=== PATIENT | male | born 1960 | race Caucasian/White ===

== ENCOUNTER 2017-04-11 16:08 | Emergency (ER) | payer OTHER ==
[~2017-04-11] VITALS: Ht 177.8 cm; Wt 99.8 kg
--- NOTE | 2017-04-11 16:17 | NUR ---
PT BIB [facility] FROM HOME CO ALCOHOL, HEROINE AND XANAX OVERDOSE. PT IN ER, HYPOXIC, NON- VERBA. NON-REBREATHER PLACED IMPROVED THE SAT TO 99%.
--- NOTE | 2017-04-11 16:36 | NUR ---
PT RESPONDING TO PAINFUL STUMULI AT THE TIME OF BLOOD DRAW, SAYING, "GOD HELP ME".
[2017-04-11 16:39] LABS: ABG HCO3 21.8 mmol/L; ABG PCO2 38.5 mmHg (35.0-45.0); ABG PO2 66.2 mmHg (75.0-100.0); ABG SITE RIGHT RADIAL; ABG TOTAL HEMOGLOBIN 18.5 G/dL (13.5-18.0); COHb 2.4 % (0.5-1.5); MetHb 0.4 % (0.0-1.5); VENT MODE ROOM AIR
[2017-04-11 16:49] LABS: BASOPHILS # (AUTO) 0.1 K/uL (0.0-8.0); BASOPHILS % (AUTO) 0.6 % (0.0-2.0); EOSINOPHILS # (AUTO) 0.1 K/uL (0.0-0.7); EOSINOPHILS % (AUTO) 0.8 % (0.0-7.0); HEMOGLOBIN 17.5 g/dL (12.5-16.3); LYMPHOCYTES # (AUTO) 2.5 K/uL (20.0-40.0); LYMPHOCYTES % (AUTO) 25.1 % (20.5-51.5); MEAN CORPUSCULAR HEMOGLOBIN 32.1 uug (23.8-33.4); MEAN CORPUSCULAR HGB CONC 34 g/dL (32.5-36.3); MEAN CORPUSCULAR VOLUME 95.1 fL (73.0-96.2); MONOCYTES # (AUTO) 0.7 K/uL (2.0-10.0); MONOCYTES % (AUTO) 6.6 % (0.0-11.0); NEUTROPHILS # (AUTO) 6.8 K/uL (1.8-8.9); NEUTROPHILS % (AUTO) 66.9 % (38.5-71.5); PLATELET COUNT (AUTO) 253 K/uL (152-348); RED BLOOD CELL COUNT(AUTO) 5.47 MIL/uL (4.06-5.63); WHITE BLOOD COUNT (AUTO) 10.1 K/uL (3.6-10.2)
[2017-04-11 16:50] LABS: CARBON DIOXIDE 22 mmol/L (21-32); CHLORIDE 101 mmol/L (98-107); CREATININE 1.1 mg/dL (0.6-1.3); GLUCOSE 100 mg/dL (74-106); POTASSIUM 3.6 mmol/L (3.5-5.1); UREA NITROGEN, BLOOD 14 mg/dL (7-18)
[2017-04-11 16:56] LABS: ALANINE AMINOTRANSFERASE 79 U/L (16-63); ALKALINE PHOSPHATASE 93 U/L (50-136); ASPARTATE AMINOTRANSFERASE 65 U/L (15-37); BILIRUBIN,DIRECT 0.1 mg/dL (0.0-0.2); BILIRUBIN,TOTAL 0.4 mg/dL (0.2-1.0); TOTAL PROTEIN, SERUM 8.4 g/dL (6.4-8.2)
[2017-04-11 17:08] LABS: ETHANOL 290 MG/DL (0-0)
--- NOTE | 2017-04-11 17:10 | NUR ---
PT ADMITTED TO CCU BY DR. RAJAN, TRANSFER PENDING ON ROOM AVAILABILITY. 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
[2017-04-11 17:11] LABS: ACETAMINOPHEN < 2.0 ug/mL (10-30)
--- NOTE | 2017-04-11 17:35 | NUR ---
PT MUMBLING, BREATHING NORMALY AT THIS TIME, ON NC. 96%
--- NOTE | 2017-04-11 18:01 | NUR ---
PT AWAKE, VERY AGITATED, YELLING AT STAFF.
--- NOTE | 2017-04-11 18:58 | NUR ---
PT NEEDS TO GO TO BATHROOM, URINAL OFFERED. PT THREW THE URINAL AT MY SELF AND CURSED.
--- NOTE | 2017-04-11 19:01 | NUR ---
HERMILO TODD CALLED, PT THROWING THE MONITOR LINES OUTSIDE, REACHING THE SUCTION CATH, TOOK IT OUT AND THREW IT AT STAFF FACE. CURSING AND THREARTENING THE STAFF.
[2017-04-11] MEDS ORDERED: HALOPERIDOL LACTATE 5 MG/1 ML VIAL IM ONE (19:15)
[2017-04-11] MEDS ORDERED: diphenhydrAMINE 50 MG/1 ML VIAL IM ONE (19:15)
[2017-04-11] MEDS ORDERED: HALOPERIDOL LACTATE 5 MG/1 ML VIAL ONE (19:23)
[2017-04-11] MEDS ORDERED: diphenhydrAMINE 50 MG/1 ML VIAL ONE (19:23)
--- NOTE | 2017-04-11 19:45 | NUR ---
Received report from KAREN Li. Assumed care of pt at this time. Pt remains in 4 point velcro restraints due to aggressive/combative behavior. Pt becoming less restless and less verbally abusive,.
--- NOTE | 2017-04-11 21:17 | NUR ---
Initially unaware pt has [facility] insurance and admission is pending. [facility] called now for MD to MD report. Dr. Marlow speaking with Dr. Mejia (eugene )
[2017-04-11 21:56] LABS: *BILIRUBIN,URIN NEGATIVE (NEGATIVE); *BLOOD, URINE NEGATIVE (NEGATIVE); *CLARITY,URINE CLEAR (CLEAR); *COLOR,URINE YELLOW (YELLOW); *KETONES,URINE TRACE (NEGATIVE); *PROTEIN,URINE NEGATIVE (NEGATIVE); *UROBILINOGEN,URINE 0.2 E.U./dl (NORMAL); LEUKOCYTE ESTERASE ,URINE NEGATIVE (NEGATIVE); NITRITE, URINE NEGATIVE (NEGATIVE); PH,URINE 5.5 (5.0-8.0); UGLUCOSE NEGATIVE (NEGATIVE)
[2017-04-11 22:06] LABS: WBC,URINE 0-3 /HPF (0-3)
[2017-04-11 22:07] LABS: MUCUS,URINE MANY /LPF (0-FEW)
[2017-04-11 22:10] LABS: *AMPHETAMINE, URINE NEGATIVE (NEGATIVE); *BARBITURATE, URINE NEGATIVE (NEGATIVE); *CANNABINOID, URINE POSITIVE (NEGATIVE); *COCCAINE, URINE NEGATIVE (NEGATIVE); *OPIATE, URINE POSITIVE (NEGATIVE); *PHENCYCLIDINE SCREEN,URINE NEGATIVE (NEGATIVE)
--- NOTE | 2017-04-11 22:13 | NUR ---
Pt resting in position of comfort for self with eyes closed, no longer restless in bed, pt calm and cooperative at this time.
--- NOTE | 2017-04-12 00:12 | NUR ---
David with crisis team at bedside for evaluation and unable to assess due to sedation.
--- NOTE | 2017-04-12 01:00 | NUR ---
Pt to be transferred to [facility] ER. Dr. Herzog accepted. Ambulance ETA [id number]. Number to call report to is [phone]. Pt resting in position of comfort for self, resp even and unlabored, tachypnic. No obvious signs of distress at this time
[2017-04-12] MEDS ORDERED: IV NORMAL SALINE 1000 ML BAG IV ONE (02:15)
--- NOTE | 2017-04-12 02:15 | NUR ---
Pt sitting up, requested water. Pt calm and cooperative, EMS at bedside.
== END 2017-04-12 03:05 | disposition short-term general hospital (02) ==
LOC: ER 16:11
DX: T42.4X1A Poisoning by benzodiazepines, accidental (unintentional), initial encounter (principal); F17.200 Nicotine dependence, unspecified, uncomplicated
CPT/HCPCS: 36415; 36600; 70030-TC; 71010; 80307; 85025; 85730; 93005; A4663; G0480; G0480-TC; J1200; J1630; J7030

== ENCOUNTER 2024-04-04 06:51 | Emergency (ER) | payer SELFPAY ==
[~2024-04-04] VITALS: Ht 177.8 cm; Wt 81.6 kg
[2024-04-04] MEDS: IV NORMAL SALINE 1000 ML BAG IV ONE ×2 (08:25→11:28)
[2024-04-04 08:27] LABS: BASOPHILS # (AUTO) 0.1 K/UL (0.0-0.2); BASOPHILS % (AUTO) 0.6 % (0.0-2.0); EOSINOPHILS # (AUTO) 0.1 K/uL (0.0-0.7); EOSINOPHILS % (AUTO) 0.9 % (0.0-7.0); HEMATOCRIT 42.5 % (36.7-47.1); HEMOGLOBIN 14.4 g/dL (12.5-16.3); LYMPHOCYTES % (AUTO) 29.1 % (20.5-51.5); MEAN CORPUSCULAR HGB CONC 34 g/dL (32.5-36.3); MEAN CORPUSCULAR VOLUME 88.3 fL (73.0-96.2); MONOCYTES # (AUTO) 0.6 K/uL (0.1-1.30); MONOCYTES % (AUTO) 5.7 % (0.0-11.0); NEUTROPHILS # (AUTO) 6.5 K/uL (1.8-8.9); NEUTROPHILS % (AUTO) 63.7 % (38.5-71.5); PLATELET COUNT (AUTO) 271 K/uL (152-348); RED BLOOD CELL COUNT(AUTO) 4.81 MIL/uL (4.06-5.63); RED CELL DISTRIBUTION WIDTH 14.1 % (12.1-16.2); WHITE BLOOD COUNT (AUTO) 10.2 K/uL (3.6-10.2)
[2024-04-04 08:35] LABS: DIFFERENTIAL COMMENT 1
[2024-04-04 08:37] LABS: MAGNESIUM 2.1 mg/dL (1.8-2.4)
[2024-04-04 08:39] LABS: CALCIUM 8.9 mg/dL (8.5-10.1); CREATININE 0.9 mg/dL (0.6-1.3); POTASSIUM 4.2 mmol/L (3.5-5.1)
[2024-04-04 08:45] LABS: ALBUMIN 3.6 g/dL (3.4-5.0); BILIRUBIN,DIRECT 0.1 mg/dL (0.0-0.2); BILIRUBIN,TOTAL 0.3 mg/dL (0.2-1.0); TOTAL PROTEIN, SERUM 7.8 g/dL (6.4-8.2)
[2024-04-04] MEDS ORDERED: MIDAZOLAM HCL 2 MG/2 ML VIAL ONE ×2 (08:46→09:26)
[2024-04-04] MEDS: MIDAZOLAM HCL 2 MG/2 ML VIAL IV ONE ×2 (08:53→09:30)
[2024-04-04 08:57] LABS: ETHANOL < 3 MG/DL (0-10)
[2024-04-04] MEDS ORDERED: IOHEXOL 300MG/ML 100 ML INFUS..BTL ONE (09:11)
[2024-04-04] MEDS ORDERED: IV NORMAL SALINE 250 ML IV ONE (09:11)
[2024-04-04] MEDS ORDERED: SWABABLE VALVE TRANSFER SET EA MC ONE (09:11)
[2024-04-04] MEDS ORDERED: METOCLOPRAMIDE HCL 10 MG/2 ML VIAL ONE (10:07)
[2024-04-04] MEDS ORDERED: diphenhydrAMINE 50 MG/1 ML VIAL ONE (10:07)
[2024-04-04] MEDS: METOCLOPRAMIDE HCL 10 MG/2 ML VIAL IV ONE (10:26)
[2024-04-04] MEDS: diphenhydrAMINE 50 MG/1 ML VIAL IV ONE (10:26)
[2024-04-04] MEDS: LIDOCAINE 2% (GLYDO= UROJET) 10 ML JELLY MM ONE (10:50)
[2024-04-04 12:15] LABS: *BILIRUBIN,URIN NEGATIVE (NEGATIVE); *BLOOD, URINE 2+ (NEGATIVE); *CLARITY,URINE CLEAR (CLEAR); *COLOR,URINE YELLOW (YELLOW); *KETONES,URINE NEGATIVE (NEGATIVE); *PROTEIN,URINE NEGATIVE (NEGATIVE); *UROBILINOGEN,URINE 0.2 E.U./dl (NORMAL); LEUKOCYTE ESTERASE ,URINE NEGATIVE (NEGATIVE); NITRITE, URINE NEGATIVE (NEGATIVE); PH,URINE 7.5 (5.0-8.0); UGLUCOSE NEGATIVE (NEGATIVE)
[2024-04-04 12:28] LABS: BACTERIA,URINE FEW /HPF (NONE SEEN); RBC,URINE 20-50 /HPF (0-3); WBC,URINE 0-3 /HPF (0-3)
[2024-04-04 12:38] LABS: *AMPHETAMINE, URINE POSITIVE (NEGATIVE); *BARBITURATE, URINE NEGATIVE (NEGATIVE); *BENZODIAZEPINE, URINE POSITIVE (NEGATIVE); *CANNABINOID, URINE NEGATIVE (NEGATIVE); *COCCAINE, URINE NEGATIVE (NEGATIVE); *OPIATE, URINE NEGATIVE (NEGATIVE); *PHENCYCLIDINE SCREEN,URINE NEGATIVE (NEGATIVE); FENTANYL, URINE NEGATIVE (NEGATIVE)
[2024-04-04] MEDS ORDERED: LACT10SO58 PO (13:42)
[2024-04-04] MEDS ORDERED: CIPR-262 PO (13:42)
[2024-04-04 18:40] VITALS: BP 123/70; TEMP 98; O2SAT 99
== END 2024-04-05 06:04 | disposition home or self-care (01) ==
LOC: ER 06:51
DX: R10.30 Lower abdominal pain, unspecified (principal); K59.00 Constipation, unspecified; F15.10 Other stimulant abuse, uncomplicated; F17.200 Nicotine dependence, unspecified, uncomplicated
CPT/HCPCS: 80076; 80048; 81001; 83690; 83735; 85025; 87040; 36415; 71045; 74177; 93005; 99285; 96361; 96374; 96375 ×2; 96376; 83605; 80320; 80307; J1200; J2765; J2250 ×2; Q9967; J7040; A4606; A4663; C1758; G0480